=== PATIENT | male | born 1990 | race Caucasian/White ===

== ENCOUNTER 2024-03-28 04:08 | Emergency (ER) | payer MEDICAID ==
[~2024-03-28] VITALS: Ht 175.3 cm; Wt 136.4 kg
[~2024-03-28 04:08] MED LIST: ARIP10TA38 PO; Fluoxetine Hcl PO
[2024-03-28 04:34] VITALS: TEMP 97.5
[2024-03-28 04:56] LABS: BASOPHILS % (AUTO) 0.8 % (0.0-2.0); EOSINOPHILS % (AUTO) 3.9 % (1.0-6.0); HEMATOCRIT 41.2 % (41-53); HEMOGLOBIN 13.3 g/dL (13.5-17.5); LYMPHOCYTES # (AUTO) 2.9 K/uL (1.0-4.8); LYMPHOCYTES % (AUTO) 30.4 % (22.0-44.0); MEAN CORPUSCULAR HEMOGLOBIN 27.2 pg (26.0-34.0); MEAN CORPUSCULAR HGB CONC 32.3 G/dL (31.0-37.0); MEAN CORPUSCULAR VOLUME 84 fL (80-100); MONOCYTES # (AUTO) 0.7 K/uL (0.1-1.0); MONOCYTES % (AUTO) 7.5 % (2.0-9.0); NEUTROPHILS # (AUTO) 5.5 K/uL (1.8-7.7); NEUTROPHILS % (AUTO) 57.4 % (40.0-70.0); PLATELET COUNT (AUTO) 255 K/uL (150-450); RED BLOOD CELL COUNT(AUTO) 4.89 MIL/uL (4.50-5.90); RED CELL DISTRIBUTION WIDTH 14.7 % (11.5-14.5); WHITE BLOOD COUNT (AUTO) 9.5 K/uL (4.5-11.0)
[2024-03-28 05:05] LABS: ANION GAP 8 mmol/L (8-16); CALCIUM, TOTAL 8.9 mg/dL (8.8-10.5); CARBON DIOXIDE 30 mmol/L (22-29); CHLORIDE 99 mmol/L (98-107); CREATININE 0.82 mg/dL (0.60-1.30); GLOMERULAR FILTR. RATE CALC > 60 mL/min (>60); GLUCOSE,RANDOM 162 mg/dL (70-110); POTASSIUM 3.7 mmol/L (3.5-5.1); SODIUM SERUM 137 mmol/L (136-145); UREA NITROGEN, BLOOD 8 mg/dL (7-18)
[2024-03-28 05:13] LABS: TROPONIN I-HIGH SENSITIVITY 5 ng/L (<76)
[2024-03-28 05:30] LABS: ALANINE AMINOTRANSFERASE 25 U/L (12-78); ALKALINE PHOSPHATASE 114 U/L (46-116); ASPARTATE AMINOTRANSFERASE 20 U/L (15-37); BILIRUBIN,TOTAL 0.3 mg/dL (0.1-1.0)
[2024-03-28 05:33] LABS: ALBUMIN 3.2 g/dL (3.4-5.0); B-TYPE NATRIURETIC PEPTIDE 7 pg/mL (0-100); TOTAL PROTEIN, SERUM 7.3 g/dL (6.4-8.2)
[2024-03-28 05:50] VITALS: BP 126/68; PULSE 89; RESP 16; O2SAT 100
[2024-03-28 07:18] LABS: TROPONIN I-HIGH SENSITIVITY 5 ng/L (<76)
[2024-03-28] MEDS: POTASSIUM CHLORIDE 20 MEQ ER TABLET PO ONE (07:27)
[2024-03-28] MEDS: IBUPROFEN 600 MG TABLET PO ONE (08:06)
== END 2024-03-28 09:20 | disposition home or self-care (01) ==
LOC: EMS 04:13
DX: M94.0 Chondrocostal junction syndrome [Tietze] (principal); F41.9 Anxiety disorder, unspecified; F31.9 Bipolar disorder, unspecified; I10 Essential (primary) hypertension; F20.9 Schizophrenia, unspecified; F17.210 Nicotine dependence, cigarettes, uncomplicated
CPT/HCPCS: 71045; 80053; 83880; 84484; 85025; 93005; 99285; 99406; 36415-L1; 36415-TC

== ENCOUNTER 2024-04-09 02:14 | Emergency (ER) | payer MEDICAID ==
[~2024-04-09] VITALS: Ht 177.8 cm; Wt 136.4 kg
[2024-04-09 02:15] VITALS: TEMP 98.6
[2024-04-09 03:05] VITALS: BP 147/93; PULSE 115; RESP 18; O2SAT 97
[2024-04-09] MEDS ORDERED: IBUP-1554 PO (03:50)
[2024-04-09] MEDS ORDERED: ACET-66 PO (03:50)
[2024-04-09] MEDS: ACETAMINOPHEN 500 MG TABLET PO ONE (04:00)
[2024-04-09] MEDS: LORazepam 2 MG TABLET PO ONE (04:00)
[2024-04-09] MEDS: IBUPROFEN 600 MG TABLET PO ONE (04:00)
== END 2024-04-09 04:16 | disposition home or self-care (01) ==
LOC: EMS 02:14
DX: S90.121A Contusion of right lesser toe(s) without damage to nail, initial encounter (principal); F41.9 Anxiety disorder, unspecified; F31.9 Bipolar disorder, unspecified; E11.9 Type 2 diabetes mellitus without complications; I10 Essential (primary) hypertension; F20.9 Schizophrenia, unspecified; F17.210 Nicotine dependence, cigarettes, uncomplicated; Z88.0 Allergy status to penicillin; Z59.00 Homelessness unspecified; V09.9XXA Pedestrian injured in unspecified transport accident, initial encounter; Y93.89 Activity, other specified; Y92.89 Other specified places as the place of occurrence of the external cause; Y99.8 Other external cause status
CPT/HCPCS: 29550; 82962; 99284